=== PATIENT | male | born 1955 | race Two or more races ===

== ENCOUNTER → 2021-01-07 | Outpatient (CLI) | payer SELFPAY | LOC: M LABSMTC 11:44 | PROVIDERS: ATTEND Pediatrics | DX: Z11.52 Encounter for screening for COVID-19 (principal) ==

== ENCOUNTER 2025-10-18 06:44 | Day surgery (SDC) | payer OTHER ==
[~2025-10-18] VITALS: Ht 157.5 cm; Wt 88.8 kg
[~2025-10-18 06:44] MED LIST: AMLO10CA30 PO; ATOR40TA75 PO; BIMA01SOL OU; BRIN8DRO OU; METF10004 PO; METH50TA10 PO; PANT40TA29 PO; SEMA2PEN SQ
[2025-10-18] MEDS ORDERED: LIDOCAINE 2% 100 MG/5 ML SDV (FOR ANES.) As Ordered ONE (07:19)
[2025-10-18 07:55] VITALS: TEMP 97.7
[2025-10-18 08:09] VITALS: BP 139/90; O2SAT 98
== END 2025-10-18 08:42 | disposition home or self-care (01) ==
LOC: M OPP 06:44
PROVIDERS: ATTEND Surgery
DX: K22.70 Barrett's esophagus without dysplasia (principal); K29.50 Unspecified chronic gastritis without bleeding; K30 Functional dyspepsia; R14.0 Abdominal distension (gaseous); R14.2 Eructation; Z79.84 Long term (current) use of oral hypoglycemic drugs; Z79.85 Long-term (current) use of injectable non-insulin antidiabetic drugs; Z79.899 Other long term (current) drug therapy